=== PATIENT | male | born 1970 | race Hispanic/Latino ===

== ENCOUNTER 2022-09-25 20:05 | Emergency (ER) | payer BC ==
--- NOTE | 2022-09-25 21:04 | RAD REPORT ---
EXAM DESCRIPTION: RAD - Chest Single View - 09/25/2022 8:54 pm CLINICAL HISTORY: CHEST PAIN Chest pain. COMPARISON: No comparisons FINDINGS: Portable technique limits examination quality. The lungs are grossly clear. The heart is upper limit of normal in size. No displaced fractures. IMPRESSION: No acute intrathoracic process suspected.
--- NOTE | 2022-09-25 21:06 | RAD REPORT ---
EXAM DESCRIPTION: CT - Head Brain Wo Cont - 09/25/2022 8:55 pm CLINICAL HISTORY: acute headache Headache, drowsiness, chest pain COMPARISON: Chest Single View dated 06/05/2022; Chest Single View dated 06/03/2022; Chest Single View dated 06/01/2022; Chest Single View dated 05/31/2022No comparisons TECHNIQUE: All CT scans are performed using dose optimization technique as appropriate and may inclu de automated exposure control or mA/KV adjustment according to patient size. FINDINGS: No intracranial hemorrhage, hydrocephalus or extra-axial fluid collection.No areas of brai n edema or evidence of midline shift. The paranasal sinuses and mastoids are clear. The calvarium is intact. IMPRESSION: No acute intracranial abnormality.
[2022-09-25] MEDS ORDERED: NA CHLORIDE 0.9% 1,000 ML ONE (21:51)
[2022-09-25] MEDS ORDERED: KETOROLAC 30 MG/ML INJ ONE (21:51)
[2022-09-25] MEDS ORDERED: DIPHENHYDRAMINE 50 MG/ML VIAL ONE (21:51)
[2022-09-25] MEDS ORDERED: METOCLOPRAMIDE 10 MG/2mL INJ ONE (21:51)
[2022-09-25 22:00] LABS: Hematocrit 41.7 % (39.6-49.0); Lymphocytes % 17.2 % (15.3-44.8); MCV 87.6 fL (80-100); MPV 8.3 fL (7.6-11.3); RBC Red Blood Cell Count 4.77 M/uL (4.33-5.43)
[2022-09-25 22:05] LABS: Protime INR 0.89
[2022-09-25 22:22] LABS: Albumin 3.9 g/dL (3.4-5.0); Bilirubin Direct 0.2 mg/dL (0-0.2); Bilirubin Indirect, Calculated 0.5 mg/dL (0.2-0.8); Bilirubin Total 0.7 mg/dL (0.2-1.0); Magnesium 1.9 mg/dL (1.6-2.4); Potassium 3.6 mEq/L (3.5-5.1); Protein, Total 7.6 g/dL (6.4-8.2); Troponin High Sensitivity 3.4 pg/mL (<58.9)
--- NOTE | 2022-09-25 23:58 | EDPHYS ---
Physician Documentation [facility] Name: Vicky Howard Age: 52 yrs Sex: Male : 1970 Arrival Date: 09/25/2022 Time: 20:05 Bed 8 Private MD: ED Physician Nash Rivera HPI: 09/25 23:36 This 52 yrs old Male presents to ER via Ambulatory with complaints of sp4 Headache, Chest Pain. 23:51 52-year-old female with history of prior brain bleed secondary to an aneurysm presents sp4 with acute headache associated with elevated blood pressure 156/93, associated with left-sided dull chest ache discomfort. Patient states she had a bleeding brain aneurysm in 2014 that was managed conservatively. Patient does not recall any interventional procedures for the bleeding brain aneurysm.. 23:51 Headache is moderate, global, started about 6:30 PM after drinking couple coffee.. sp4 Historical: - Allergies: 20:26 No Known Allergies; vc1 - Home Meds: 20:26 None [Active]; vc1 - PMHx: 20:26 Cerebrovascular accident; bleed; Blood clot in brain; Diabetes mellitus; vc1 - PSHx: 20:26 Tummy tuck; Cholecystectomy; section; vc1 - Immunization history:: Client reports having NOT received the Covid vaccine. - Social history:: Smoking status: Patient denies any tobacco usage or history of. - Family history:: not pertinent. ROS: 23:51 Constitutional: Negative for fever, chills, and weight loss, Eyes: Negative for injury, sp4 pain, redness, and discharge, ENT: Negative for injury, pain, and discharge, Neck: Negative for injury, pain, and swelling, Cardiovascular: Negative for palpitations, and edema, positive for acute chest discomfort left-sided. Respiratory: Negative for shortness of breath, cough, wheezing, and pleuritic chest pain, Abdomen/GI: Negative for abdominal pain, nausea, vomiting, diarrhea, and constipation, Back: Negative for injury and pain, : Negative for injury, bleeding, discharge, and swelling, MS/Extremity: Negative for injury and deformity, Skin: Negative for injury, rash, and discoloration, Neuro: Negative for weakness, numbness, tingling, and seizure, positive for global headache Psych: Negative for depression, anxiety, Allergy/Immunology: Negative for hives, rash, and allergies Endocrine: Negative for neck swelling, polydipsia, polyuria, polyphagia, and weight changes Hematologic/Lymphatic: Negative for swollen nodes, abnormal bleeding, and unusual bruising Exam: 23:51 Constitutional: This is a well developed, well nourished patient who is awake, alert, sp4 and in no acute distress. Head/Face: Normocephalic, atraumatic. Eyes: Pupils equal round and reactive to light, extra-ocular motions intact. Lids and lashes normal. Conjunctiva and sclera are not injected. Cornea within normal limits. Periorbital areas with no swelling, redness, or edema. ENT: Nares patent. No nasal discharge, no septal abnormalities noted. Tympanic membranes are normal and external auditory canals are clear. Oropharynx with no redness, swelling, or masses, exudates, or evidence of obstruction, uvula midline. Mucous membranes moist. Neck: Trachea midline, no thyromegaly or masses palpated, and no cervical lymphadenopathy. Supple, full range of motion without nuchal rigidity, or vertebral point tenderness. No Meningismus. Chest/axilla: Normal chest wall appearance and motion. Nontender with no deformity. No lesions are appreciated. Cardiovascular: Regular rate and rhythm with a normal S1 and S2. No gallops, murmurs, or rubs. Normal PMI, no JVD. No pulse deficits. Respiratory: Lungs have equal breath sounds bilaterally, clear to auscultation and percussion. No rales, rhonchi or wheezes noted. No increased work of breathing, no retractions or nasal flaring. Abdomen/GI: Soft, non-tender, with normal bowel sounds. No distension or tympany. No guarding or rebound. No evidence of tenderness throughout. Back: No spinal tenderness. No costovertebral tenderness. Skin: Warm, dry with normal turgor. Normal color with no rashes, no lesions, and no evidence of cellulitis. MS/ Extremity: Pulses equal, no cyanosis. Neurovascular intact. Full, normal range of motion. Neuro: Awake and alert, GCS 15, oriented to person, place, time, and situation. Cranial nerves II-XII grossly intact. Motor strength 5/5 in all extremities. Sensory grossly intact. Psych: Awake, alert, with orientation to person, place and time. Behavior, mood, and affect are within normal limits 23:51 Constitutional: This is a well developed, well nourished patient who is awake, alert, sp4 and in no acute distress. Patient is a female 23:51 ECG was reviewed by the Attending Physician. Normal sinus rhythm at the rate of 77 . sp4 There is no ST elevation or depression. There is no ectopy , EKG time 2047 Vital Signs: 20:24 BP 172 / 99; Pulse 75; Resp 15; Temp 98.8; Pulse Ox 100% ; Weight 81.65 kg; Height 5 vc1 ft. 3 in. ; Pain 6/10; 22:00 BP 124 / 69; Pulse 61; Resp 18; Pulse Ox 99% ; j7 23:00 BP 119 / 64; Pulse 63; Resp 16; Pulse Ox 100% ; 7 09/26 00:00 BP 106 / 57; Pulse 70; Resp 17; Pulse Ox 99% ; Pain 0/10; j7 09/25 20:24 Body Mass Index 31.89 (81.65 kg, 160.02 cm) 1 09/25 20:24 Pain Scale: Adult 1 09/26 00:00 Pain Scale: Adult j Hugo Coma Score: 09/25 23:51 Eye Response: spontaneous(4). Motor Response: obeys commands(6). Verbal Response: sp4 oriented(5). Total: 15. MDM: 20:21 Patient medically screened. sp4 23:51 Data reviewed: vital signs, nurses notes, lab test result(s), EKG, radiologic studies, sp4 CT scan, plain films. 23:51 Differential diagnosis: hypertensive headache, hypoglycemia, migraine, tension sp4 headache, vasomotor headache. Consideration of Admission/Observation Escalation of care including admission/observation considered. ED course: CT head negative, chest x-ray is normal, EKG is normal, lab work is unremarkable. Patient is stable for discharge home at this time. Will advise follow-up with primary MD for thyroid panel check.. 09/25 20:21 Order name: Basic Metabolic Panel; Complete Time: 23:34 sp4 09/25 20:21 Order name: CBC with Diff sp4 09/25 20:21 Order name: LFT's; Complete Time: 23:34 sp4 09/25 20:21 Order name: Magnesium; Complete Time: 23:34 sp4 09/25 20:21 Order name: NT PRO-BNP; Complete Time: 23:34 sp4 09/25 20:21 Order name: PT-INR; Complete Time: 23:34 sp4 09/25 20:21 Order name: Troponin HS; Complete Time: 23:34 sp4 09/25 20:21 Order name: XRAY Chest (1 view); Complete Time: 23:34 sp4 09/25 20:27 Order name: CT Head Brain wo Cont; Complete Time: 23:34 sp4 09/25 20:21 Order name: EKG; Complete Time: 20:22 sp4 09/25 20:21 Order name: Cardiac monitoring; Complete Time: 21:48 sp4 09/25 20:21 Order name: EKG - Nurse/Tech; Complete Time: 21:48 sp4 09/25 20:21 Order name: IV Saline Lock; Complete Time: 21:48 sp4 09/25 20:21 Order name: Labs collected and sent; Complete Time: 21:48 sp4 09/25 20:21 Order name: O2 Per Protocol; Complete Time: 21:48 sp4 09/25 20:21 Order name: O2 Sat Monitoring; Complete Time: 21:48 sp4 EC:51 Rate is 77 beats/min. Rhythm is regular, Normal Sinus Rhythm with No ectopy. QRS Palmer sp4 is Normal. AL interval is normal. QRS interval is normal. QT interval is normal. T waves are Normal. No ST changes noted. Clinical impression: No evidence of ischemia. Interpreted by me. Administered Medications: 21:48 Drug: Ketorolac IVP 30 mg Route: IVP; Site: left antecubital; rv 21:48 Drug: metoCLOPramide IVP 10 mg Route: IVP; Site: left antecubital; rv 21:48 Drug: diphenhydrAMINE IVP 25 mg Route: IVP; Site: left antecubital; rv 21:48 Drug: NS 0.9% IV 1000 ml Route: IV; Rate: 125 ml/hr; Site: left antecubital; rv Disposition Summary: 09/25/22 23:58 Discharge Ordered Location: Home sp4 Problem: new sp4 Symptoms: have improved sp4 Condition: Stable sp4 Diagnosis - Tension-type headache sp4 - Noncardiac chest pain, acute global headache, sp4 Followup: sp4 - With: Private Physician - When: 7 - 10 days - Reason: Recheck today's complaints Discharge Instructions: - Discharge Summary Sheet sp4 - General Headache Without Cause, Swsy-et-Vumc sp4 Prescriptions: - Fioricet 50-300-40 mg Oral capsule - take 1 capsule by ORAL route every 8 hours PRN Headache; 30 capsule; Refills: sp4 0, Product Selection Permitted Signatures: Dispatcher [employer] Farhat Sky, RN RN rv Archana Coyne RN RN vc1 Nash Rivera MD MD sp4
--- NOTE | 2022-09-25 23:58 | ER ---
Nurse's Notes [facility] Name: Vicky Howard Age: 52 yrs Sex: Male : 1970 Arrival Date: 09/25/2022 Time: 20:05 Bed 8 Private MD: Diagnosis: Tension-type headache;Noncardiac chest pain, acute global headache, Presentation: 09/25 20:24 Chief complaint: Patient states: "I drank some coffee earlier and got a headache then I vc1 got chest pain.". Coronavirus screen:. Ebola Screen: Patient negative for fever greater than or equal to 101.5 degrees Fahrenheit, and additional compatible Ebola Virus Disease symptoms Patient denies exposure to infectious person. Patient denies travel to an Ebola-affected area in the 21 days before illness onset. No symptoms or risks identified at this time. Initial Sepsis Screen: Does the patient meet any 2 criteria? No. Patient's initial sepsis screen is negative. Does the patient have a suspected source of infection? No. Patient's initial sepsis screen is negative. Risk Assessment: Do you want to hurt yourself or someone else? Patient reports no desire to harm self or others. Onset of symptoms was September 25, 2022 at 18:30. 20:24 Method Of Arrival: Ambulatory vc1 20:24 Acuity: CAMRYN 3 vc1 20:29 Coronavirus screen: Vaccine status: Patient reports being unvaccinated. Client denies vc1 travel out of the [place] in the last 14 days. At this time, the client does not indicate any symptoms associated with coronavirus-19. Triage Assessment: 20:29 Headache History: The patient has had previous headaches and this one is similar to vc1 previous episodes. General: Appears in no apparent distress. uncomfortable, Behavior is calm, cooperative, agitated. Pain: Complains of pain in chest Pain currently is 6 out of 10 on a pain scale. Pain began suddenly, 2 hours ago. Also complains of headache. EENT: No deficits noted. No signs and/or symptoms were reported regarding the EENT system. Neuro: Level of Consciousness is awake, alert, obeys commands, Oriented to person, place, time, situation, Appropriate for age. Neuro: Reports headache. Cardiovascular: Chest pain is described as mild, Pain is 6 out of 10 on a pain scale. is located in left. Respiratory: Airway is patent Respiratory effort is even, unlabored, Respiratory pattern is regular, symmetrical. GI: No deficits noted. No signs and/or symptoms were reported involving the gastrointestinal system. : No deficits noted. No signs and/or symptoms were reported regarding the genitourinary system. Derm: No deficits noted. No signs and/or symptoms reported regarding the dermatologic system. Musculoskeletal: No deficits noted. No signs and/or symptoms reported regarding the musculoskeletal system. Historical: - Allergies: 20:26 No Known Allergies; vc1 - Home Meds: 20:26 None [Active]; vc1 - PMHx: 20:26 Cerebrovascular accident; bleed; Blood clot in brain; Diabetes mellitus; vc1 - PSHx: 20:26 Tummy tuck; Cholecystectomy; section; vc1 - Immunization history:: Client reports having NOT received the Covid vaccine. - Social history:: Smoking status: Patient denies any tobacco usage or history of. - Family history:: not pertinent. Screenin:49 [facility] ED Fall Risk Assessment (Adult) History of falling in the last 3 months, rv including since admission No falls in past 3 months (0 pts) Confusion or Disorientation No (0 pts) Intoxicated or Sedated No (0 pts) Impaired Gait No (0 pts) Mobility Assist Device Used No (0 pt) Altered Elimination No (0 pt) Score/Fall Risk Level 0 - 2 = Low Risk Oriented to surroundings, Maintained a safe environment, Educated pt \\T\\ family on fall prevention, incl call for assistance when getting out of bed, Assessed \\T\\ reinforced patient's understanding of fall precautions, Provided non-skid footwear, Hourly rounding (assess needs \\T\\ fall precautionary measures) done, Used ambulatory aids as needed (educated on \\T\\ assisted with), Used gait belt as appropriate. Abuse screen: Denies threats or abuse. Denies injuries from another. Nutritional screening: No deficits noted. Tuberculosis screening: No symptoms or risk factors identified. Assessment: 21:31 Reassessment: not in lobby. as6 Vital Signs: 20:24 BP 172 / 99; Pulse 75; Resp 15; Temp 98.8; Pulse Ox 100% ; Weight 81.65 kg; Height 5 vc1 ft. 3 in. ; Pain 6/10; 22:00 BP 124 / 69; Pulse 61; Resp 18; Pulse Ox 99% ; jj7 23:00 BP 119 / 64; Pulse 63; Resp 16; Pulse Ox 100% ; jj7 09/26 00:00 BP 106 / 57; Pulse 70; Resp 17; Pulse Ox 99% ; Pain 0/10; jj7 06 20:24 Body Mass Index 31.89 (81.65 kg, 160.02 cm) vc1 09/25 20:24 Pain Scale: Adult vc1 09/26 00:00 Pain Scale: Adult j7 Hugo Coma Score: 09/25 23:51 Eye Response: spontaneous(4). Motor Response: obeys commands(6). Verbal Response: sp4 oriented(5). Total: 15. ED Course: 20:08 Patient arrived in ED. ag3 20:20 Nash Rivera MD is Attending Physician. sp4 20:26 Triage completed. vc1 20:29 Arm band placed on right wrist. vc1 20:56 XRAY Chest (1 view) In Process Unspecified. EDMS 20:56 CT Head Brain wo Cont In Process Unspecified. EDMS 21:33 Farhat Son, DEEP is Primary Nurse. rv 21:49 Patient has correct armband on for positive identification. Placed in gown. Bed in low rv position. Call light in reach. Side rails up X 1. Client placed on continuous cardiac and pulse oximetry monitoring. NIBP monitoring applied. library monitor on. 21:49 Inserted saline lock: 20 gauge in left antecubital area, using aseptic technique. Blood rv collected. 09/26 00:14 No provider procedures requiring assistance completed. IV discontinued, intact, jj7 bleeding controlled, No redness/swelling at site. Pressure dressing applied. Administered Medications: 09/25 21:48 Drug: Ketorolac IVP 30 mg Route: IVP; Site: left antecubital; rv 21:48 Drug: metoCLOPramide IVP 10 mg Route: IVP; Site: left antecubital; rv 21:48 Drug: diphenhydrAMINE IVP 25 mg Route: IVP; Site: left antecubital; rv 21:48 Drug: NS 0.9% IV 1000 ml Route: IV; Rate: 125 ml/hr; Site: left antecubital; rv Medication: 21:49 VIS not applicable for this client. rv Outcome: 23:58 Discharge ordered by . sp4 09/26 00:14 Discharged to home ambulatory. jj7 Condition: improved Discharge instructions given to patient, Instructed on discharge instructions, medication usage, Demonstrated understanding of instructions, medications, Prescriptions given X 1. 00:19 Patient left the ED. jj7 Signatures: Dispatcher [employer] EDMS Farhat Son RN RN rv Lyssa Gómez ag3 John Brizuela RN RN as6 Archana Coyne RN RN vc1 Isabel Schulz RN RN jj7 Nash Rivera MD MD sp4
[2022-09-26 01:27] VITALS: TEMP 98.8
[2022-09-26 01:33] VITALS: BP 106/57; O2SAT 99
--- NOTE | 2022-09-27 07:19 | EKG ---
Test Date: 2022-09-25 Test Time: 20:48:54 Concrete Pourer: WYATT MEASUREMENT RESULTS: Intervals: Rate: 77 UT: 154 QRSD: 76 QT: 362 QTc: 409 [place]: P: 53 UT: 154 QRS: -15 T: 33 INTERPRETIVE STATEMENTS: Normal sinus rhythm Normal ECG No previous ECG available for comparison Electronically Signed On 09-27-22 07:14:28 CDT by Clay Dixon
== END 2022-09-26 00:19 | disposition home or self-care (01) ==
LOC: ER 20:05
DX: G44.209 Tension-type headache, unspecified, not intractable (principal); R07.89 Other chest pain; E11.9 Type 2 diabetes mellitus without complications; Z86.73 Personal history of transient ischemic attack (TIA), and cerebral infarction without residual deficits
CPT/HCPCS: 93005; 85025; 80048; 36415; 83735; 85610; 80076; 84484; 83880; 70450; 71045; 96375; 96374; 99285; J2765; J1200; J7030

== ENCOUNTER 2023-02-28 17:28 | Emergency (ER) | payer BC ==
--- OUTSIDE RECORDS SUMMARY | 2023-02-28 17:54 | XMS REPORT | Continuity of Care Document ---
:1970 Author Organization [facility] t Address [address] [place] [address] Care Team Providers Name Role Phone Santino CAUSEY, Kayli Burnham Primary Care Physician [phone] BRAIN NAQVI Attending Clinician Unavailable YONAS WALLER Attending Clinician Unavailable [email or web address] Attending Clinician Unavailable SANFORD DAVILA Attending Clinician Unavailable LAB90 Attending Clinician Unavailable MINERVA MONTANEZ Attending Clinician Unavailable OZZY MADERA Attending Clinician Unavailable ALEXANDRA MCDANIEL Attending Clinician Unavailable DAVID TRIANA Attending Clinician Unavailable NATY BASURTO Attending Clinician Unavailable [email or web address]_S Admitting Clinician Unavailable Payers Payer Name Policy Type Policy Number Effective Date Expiration Date S ource BCBS 2 [id number] 2022 00:00:00 [place] [id number] 2022 00[place]00 [place] Problems This patient has no known problems. Allergies, Adverse Reactions, Alerts This patient has no known allergies or adverse reactions. Social History Social Habit Start Date Stop Date Quantity Comments Source Gender identity Lacey sommers - External History of tobacco Cigarette Smoker Lacey Reed - use External Sexual orientation Method [facility] Cigarettes smoked 2022-10-18 2022-10-18 Lacey Reed - current (pack per 00:00:00 00:00:00 Externa l day) - Reported Cigarette 2022-10-18 2022-10-18 Lacey Llamasbetzyjeanine - pack-years 00:00:00 00:00:00 External Tobacco use and 2022-10-18 2022-10-18 Smokeless Lacey Llamas ybold - exposure 00:00:00 00:00:00 tobacco non-user External Alcohol intake 2019-08-20 2019-08-20 Ex-drinker [facility] 00:[facility]:00 00:00:00 (finding) Hospital History of Social 2019-08-20 2019-08-[address] function 00:00:00 00:00:00 Hospital Sex Assigned At [birth year] [facility] 00:00:00 00:00:00 Hospital Smoking Status Start Date Stop Date Source Ex-smoker 2022-10-18 00:00:00 2022-10-18 00:00:00 Lacey S delfina - External Never smoked tobacco [facility] Medications Ordered Filled Start Stop Current Ordering Indication Dosage Frequency Signature Comments Components Source Medication Medication Date Date Medication? Clinician (SIG) Name Name ESTRADIOL Yes [id number] 1g Place 1 g Lacey VAGINAL 0.1 10-19 vaginally Sey bold MG/GM 00:00: twice a - vaginal 00 week Externa Cream l Metformin 2022- No 500mg Take 1 Mally ey HCl ER 500 10-18 tablet Seybol d MG oral 17:10: 00:00 (500 mg - TABLET SR 15 :00 total) by Exter na 24 HR mouth l daily Esomeprazol Yes [id number] 1{capsu Take 1 Lacey e Magnesium - le} capsule by ybold (NexIUM) 20 16:47: mouth - MG oral 15 daily Externa Pack l Metformin Yes [id number] 500mg Take 1 Lacey HCl ER 500 10-18 tablet Seybold MG oral 00:00: (500 mg - TABLET SR 00 total) by Exter na 24 HR mouth l daily ESTRADIOL 2022- No INSERT TWO K elsey VAGINAL 0.1 410-18 (2) GRAMS Se ybold MG/GM 00:00: 00:00 INTO - vaginal 00 :00 VAGINA AT Externa Cream BEDTIME l FOR 2 WEEKS, THEN 1 GRAM AT BEDTIME TWICE A WEEK. metFORMIN Yes TAKE 1 Method i (GLUCOPHAGE 08-[address] ) 500 mg 00:00: (500 MG) Hospi ta tablet 00 BY MOUTH 2 l TIMES PER DAY WITH MEALS sulfamethox 0 Yes TAKE ONE Me thodi azole-trime 07-28 (1) st thoprim 00:00: TABLET(S) Hospi ta (BACTRIM 00 BY MOUTH l DS) 800-160 TWICE A mg per DAY FOR tablet THREE DAYS. progesteron Yes Method i e 05-13 (PROMETRIUM 00:00: Hospit a ) 100 MG 00 l capsule Vital Signs Vital Name Observation Time Observation Value Comments Source Systolic blood 2022-10-18 21:41:00 116 mm[Hg] Lacey Seybold - pressure External Diastolic blood 2022-10-18 21:41:00 78 mm[Hg] Anjumse y Seybold - pressure External Heart rate 2022-10-18 21:41:00 75 /min Lacey mathis - External Body temperature 2022-10-18 21:41:00 36.44 Amy Mally ey Seybold - External Respiratory rate 2022-10-18 21:41:00 16 /min Mally ey Seybold - External Body weight 2022-10-18 21:41:00 84.278 kg Lacey mathis - External Oxygen saturation in 2022-10-18 21:41:00 99 /min Lacey Reed - Arterial blood by External Pulse oximetry Procedures This patient has no known procedures. Plan of Care Planned Activity Planned Date Details Comments Source Future Scheduled 2023-02-17 [facility] Test 07:52:18 malignant neoplasm of colon (procedure) [code = 030642891] Future Scheduled 2023-02-17 [facility] for [facility] Test 07:52:18 malignant neoplasm of colon (procedure) [code = 491073807] Future Scheduled 2023-02-17 [facility] for [facility] Test 07:52:18 malignant neoplasm of colon (procedure) [code = 722396194] Future Scheduled 2023-02-17 COVID-19 VACCINE [facility] Hospital Test 07:52:18 (#1) [code = COVID-19 VACCINE (#1)] Future Scheduled 2023-02-17 [facility] for [facility] Test 07:52:18 malignant neoplasm of cervix (procedure) [code = 055502406] Future [facility]uled [facility]23-02-17 [facility] malignant neoplasm of colon (procedure) [code = 217842026] Future Scheduled 2023-02-17 [facility] for [facility] Test 07:52:18 malignant neoplasm of colon (procedure) [code = 537713640] Future Scheduled 2023-02-17 SHINGLES VACCINES [facility] Test 07:52:18 (1 of 2) [code = SHINGLES VACCINES (1 of 2)] Future Scheduled 2023-02-17 [facility] 07:52:18 SCREENING [code = BREAST CANCER SCREENING] Future Scheduled 2023-02-[address] [facility] Test 07:52:18 (#1) [code = INFLUENZA VACCINE (#1)] Encounters Start End Encounter Admission Attending Care Care Encounter Source Date/Time Date/Time Type Type Clinicians Facility Department ID 2022-08-29 Outpatient [facility] [id number] [facility] 11:55:13 [id number] [facility] 2023-03-01 2023-03-01 Outpatient LACEY NAQVI [id number] [place] 13:30:00 13:30:00 BRAIN Seybol d 2023-02-09 2023-02-09 Outpatient LACEY NAQVI [id number] [place] 16:00:00 16:00:00 BRAIN Seybol d 2023-01-31 2023-01-31 Outpatient LACEY WALLER [id number] [place] 00:00:00 00:00:00 YONAS Seybol d 2023-01-26 2023-01-26 Outpatient LACEY WALLER [id number] [place] 00:00:00 00:00:00 YONAS Seybol d 2023-01-25 2023-01-25 Outpatient GC_GCBZW_Ka PRIV PRIV [id number] [facility] 00:00:00 00:00:00 diyala_S [id number] Medic al 2023-01-22 2023-01-22 Outpatient LACEY DAVILA [id number] [place] 08:45:00 08:45:00 SANFORD Seybol d 2023-01-19 2023-01-19 Outpatient PREZAS, LACEY GIPSON [id number] [place] 00:00:00 00:00:00 YONAS Seybol d 2023-01-08 2023-01-08 Outpatient PREZAS, LACEY GIPSON [id number] [place] 00:00:00 00:00:00 YONAS Seybol d 2023-01-08 2023-01-08 Outpatient PREZAS, LACEY GIPSON [id number] [place] 00:00:00 00:00:00 YONAS Seybol d 2022-12-21 2022-12-21 Outpatient LAB90 LACEY GIPSON [id number] [place] 13:25:00 13:25:00 Seybol d 2022-12-15 2022-12-15 Outpatient PREZAS, LACEY GIPSON [id number] [place] 00:00:00 00:00:00 YONAS Seybol d 2022-12-12 2022-12-12 Outpatient LAB90 LACEY GIPSON [id number] [place] 16:45:00 16:45:00 Seybol d 2022-12-12 2022-12-12 Outpatient [facility], [place] LACEY GIPSON [id number] [place] 16:15:00 16:15:00 Seybol d 2022-12-12 2022-12-12 Outpatient PREZAS, LACEY GIPSON [id number] [place] 00:00:00 00:00:00 YONAS Seybol d 2022-12-12 2022-12-12 Outpatient PREZAS, LACEY GIPSON [id number] [place] 00:00:00 00:00:00 YONAS Seybol d 2022-12-08 2022-12-08 Outpatient GC_GCBZW_Ka PRIV PRIV [id number] [facility] 00:00:00 00:00:00 diyala_S [id number] Medic al 2022-11-15 2022-11-15 Outpatient PREZALACEY Lozoya [id number] [place] 00:00:00 00:00:00 YONAS Seybol d 2022-10-26 2022-10-26 Outpatient PREZASLACEY [id number] [place] 00:00:00 00:00:00 YONAS Seybol d 2022-10-26 2022-10-26 Outpatient PREZAS, LACEY GIPSON [id number] [place] 00:00:00 00:00:00 YONAS Seybol d 2022-10-26 2022-10-26 Outpatient CASSY, LACEY GIPSON [id number] [place] 00:00:00 00:00:00 OZZY Seybol d 2022-10-26 2022-10-26 Outpatient PREZAS, LACEY GIPSON [id number] [place] 00:00:00 00:00:00 YONAS Seybol d 2022-10-20 2022-10-20 Outpatient PREZAS, LACEY GIPSON [id number] [place] 00:00:00 00:00:00 YONAS Seybol d 2022-10-19 2022-10-19 Outpatient PREZAS, LACEY GIPSON [id number] [place] 00:00:00 00:00:00 YONAS Seybol d 2022-10-19 2022-10-19 Outpatient CASSY, LACEY GIPSON [id number] [place] 00:00:00 00:00:00 OZZY Seybol d 2022-10-19 2022-10-19 Outpatient PREZAS, LACEY GIPSON [id number] [place] 00:00:00 00:00:00 YONAS Seybol d 2022-10-18 2022-10-18 Outpatient LAB90 LACEY GIPSON [id number] [place] 17:25:00 17:25:00 Seybol d 2022-10-18 2022-10-18 Outpatient CASSY, LACEY GIPSON [id number] [place] 16:30:00 16:30:00 OZZY Seybol d 2019-08-20 2019-08-20 Emergency [facility] [id number] [place] 00:00:00 00:00:00 ALEXANDRA [address] 2019-07-01 2019-07-01 Outpatient [facility] [id number] [address] [place] [address] 00:00:00 00:00:00 DAVID [address] 2019-07-01 2019-07-01 Outpatient [facility] [id number] [address] [place] [address] 00:00:00 00:00:00 DAVID 05[facility]oon [facility] 2019-06-23 2019-06-23 Outpatient [facility], [facility] [id number] [place] 00:00:00 00:00:00 NATY [address] 2019-06-23 2019-06-23 Outpatient [facility], [facility] [id number] [place] 00:00:00 00:00:00 NATY [address] Results This patient has no known results.
--- NOTE | 2023-02-28 18:49 | RAD REPORT ---
EXAM DESCRIPTION: US - Extremity Venous Uni Ltd - 02/28/2023 6:38 pm CLINICAL HISTORY: PAIN Leg swelling and edema. COMPARISON: No comparisons FINDINGS: Right lower extremity venous system was interrogated with Doppler technique. Normal flow, compressibility and augmentation was noted. There is no DVT present. IMPRESSION: No evidence of right lower extremity deep venous thrombosis.
--- NOTE | 2023-02-28 18:53 | EDPHYS ---
Physician Documentation [facility] Name: Vicky Howard Age: 52 yrs Sex: Male : 1970 Arrival Date: 02/28/2023 Time: 17:28 Bed IW1 Private MD: ED Physician Errol Mckinney HPI: 02/28 18:02 This 52 yrs old Male presents to ER via Wheelchair with complaints of Knee snw Pain. 18:02 Onset: The symptoms/episode began/occurred acutely. The patient has experienced a snw previous episode, approximately 2 years ago, but today's symptoms are not as bad as this previous episode, pt had DVT, was on anticoagulants x 6mo, stopped thinners one year ago. The patient has not recently seen a physician. Historical: - Allergies: 17:44 No Known Allergies; hb - Home Meds: 17:44 Ozempic subcutaneous [Active]; hb - PMHx: 17:44 Blood clot in brain; Cerebrovascular accident; bleed; diabetes mellitus; hb - PSHx: 17:44 section; Cholecystectomy; Tummy tuck; hb - Immunization history:: Adult Immunizations up to date. - Social history:: Smoking status: Patient denies any tobacco usage or history of. ROS: 18:01 Constitutional: Negative for fever, chills, and weight loss, Eyes: Negative for injury, snw pain, redness, and discharge, ENT: Negative for injury, pain, and discharge, Neck: Negative for injury, pain, and swelling, Cardiovascular: Negative for chest pain, palpitations, and edema, Respiratory: Negative for shortness of breath, cough, wheezing, and pleuritic chest pain, Abdomen/GI: Negative for abdominal pain, nausea, vomiting, diarrhea, and constipation, Back: Negative for injury and pain, : Negative for injury, bleeding, discharge, and swelling, Skin: Negative for injury, rash, and discoloration, Neuro: Negative for headache, weakness, numbness, tingling, and seizure, Psych: Negative for depression, anxiety, suicide ideation, homicidal ideation, and hallucinations, 18:01 MS/extremity: Positive for pain, of the right knee, Exam: 18:00 Constitutional: This is a well developed, well nourished patient who is awake, alert, snw and in no acute distress. Head/Face: Normocephalic, atraumatic. Eyes: Pupils equal round and reactive to light, extra-ocular motions intact. Lids and lashes normal. Conjunctiva and sclera are non-icteric and not injected. Cornea within normal limits. Periorbital areas with no swelling, redness, or edema. ENT: Nares patent. No nasal discharge, no septal abnormalities noted. Tympanic membranes are normal and external auditory canals are clear. Oropharynx with no redness, swelling, or masses, exudates, or evidence of obstruction, uvula midline. Mucous membranes moist. Neck: Trachea midline, no thyromegaly or masses palpated, and no cervical lymphadenopathy. Supple, full range of motion without nuchal rigidity, or vertebral point tenderness. No Meningismus. Chest/axilla: Normal chest wall appearance and motion. Nontender with no deformity. No lesions are appreciated. Cardiovascular: Regular rate and rhythm with a normal S1 and S2. No gallops, murmurs, or rubs. Normal PMI, no JVD. No pulse deficits. Respiratory: Lungs have equal breath sounds bilaterally, clear to auscultation and percussion. No rales, rhonchi or wheezes noted. No increased work of breathing, no retractions or nasal flaring. Abdomen/GI: Soft, non-tender, with normal bowel sounds. No distension or tympany. No guarding or rebound. No evidence of tenderness throughout. Back: No spinal tenderness. No costovertebral tenderness. Full range of motion. Skin: Warm, dry with normal turgor. Normal color with no rashes, no lesions, and no evidence of cellulitis. Neuro: Awake and alert, GCS 15, oriented to person, place, time, and situation. Cranial nerves II-XII grossly intact. Motor strength 5/5 in all extremities. Sensory grossly intact. Cerebellar exam normal. Normal gait. Psych: Awake, alert, with orientation to person, place and time. Behavior, mood, and affect are within normal limits. 18:00 Musculoskeletal/extremity: Extremities: grossly normal except: noted in the posterior aspect of right knee and right knee: pain, ROM: no acute changes, Circulation is intact in all extremities. Sensation intact. Vital Signs: 17:42 BP 143 / 98; Pulse 78; Resp 16; Temp 98.4; Pulse Ox 100% on R/A; Weight 80.29 kg; hb Height 5 ft. 3 in. ; Pain 1010; 17:42 Body Mass Index 31.35 (80.29 kg, 160.02 cm) hb 17:42 Pain Scale: Adult hb MDM: 17:46 Patient medically screened. snw 18:53 Data reviewed: vital signs, nurses notes, radiologic studies, ultrasound, negative for snw DVT. I considered the following discharge prescriptions or medication management in the emergency department Medications were administered in the Emergency Department. See MAR. Counseling: I had a detailed discussion with the patient and/or guardian regarding the historical points, exam findings, and any diagnostic results supporting the discharge/admit diagnosis, radiology results, the need for outpatient follow up, for definitive care, to return to the emergency department if symptoms worsen or persist or if there are any questions or concerns that arise at home. Special discussion: I have referred the patient to see his PCP for further evaluation of high blood pressure. Based on the history and exam findings, there is no indication for further emergent testing or inpatient evaluation. I discussed with the patient/guardian the need to see the primary care provider for further evaluation of the symptoms. 02/28 17:50 Order name: US Extremity Venous Unilateral Ltd; Complete Time: 18:52 snw Administered Medications: 19:14 Drug: HYDROcodone-acetaminophen PO 5 mg-325 mg 1 tabs PO once Route: PO; jw7 19:14 Follow up: Response: No adverse reaction jw7 19:14 Drug: Aspirin PO Chewable Tablet 324 mg PO once; 81 mg tablets x 4 Route: PO; jw7 19:14 Follow up: Response: No adverse reaction jw7 Disposition: 20:01 Co-signature as Attending Physician, Errol Mckinney MD I reviewed the patient's care rt provided by the Advanced Practice Provider and agree with the diagnosis and treatment plan. Disposition Summary: 02/28/23 18:52 Discharge Ordered Notes: 1 Baby aspirin daily Location: Home snw Condition: Stable snw Diagnosis - Pain in right leg snw Followup: snw - With: Emergency Department - When: As needed - Reason: Worsening of condition Followup: snw - With: Private Physician - When: 2 - 3 days - Reason: Recheck today's complaints, Continuance of care, Re-evaluation by your physician Discharge Instructions: - Discharge Summary Sheet snw - Musculoskeletal Pain snw - Pain Without a Known Cause snw - Aspirin and Your Heart snw - Heat Therapy snw Forms: - Work release form snw - Medication Reconciliation Form snw - Thank You Letter snw - Antibiotic Education snw - Prescription Opioid Use snw - Patient Portal Instructions snw - Leadership Thank You Letter snw Prescriptions: - acetaminophen-codeine 300-30 mg Oral tablet - take 1 tablet ORAL route 3 times per day as needed for pain; 12 tablet; snw Refills: 0, Product Selection Permitted Signatures: Dispatcher [employer] EDMS Janny Baumann, FEED CRUSHER-C FEED CRUSHER-Csnw Cielo Hudson, RN RN Carrie Gandhi RN RN jw7 Errol Mckinney MD MD rt
--- NOTE | 2023-02-28 18:53 | ER ---
Nurse's Notes [facility] Name: Vicky Howard Age: 52 yrs Sex: Male : 1970 Arrival Date: 02/28/2023 Time: 17:28 Bed IW1 Private MD: Diagnosis: Pain in right leg Presentation: 02/28 17:42 Chief complaint: Right knee pain 10/10 since 1200 today. Denies injury. Hx of DVT in hb same leg, not on blood thinners anymore. Coronavirus screen: At this time, the client does not indicate any symptoms associated with coronavirus-19. Ebola Screen: No symptoms or risks identified at this time. Initial Sepsis Screen: Does the patient meet any 2 criteria? No. Patient's initial sepsis screen is negative. Does the patient have a suspected source of infection? No. Patient's initial sepsis screen is negative. Risk Assessment: Do you want to hurt yourself or someone else? Patient reports no desire to harm self or others. Onset of symptoms was February 28, 2023. 17:42 Method Of Arrival: Wheelchair hb 17:42 Acuity: CAMRYN 3 hb Historical: - Allergies: 17:44 No Known Allergies; hb - Home Meds: 17:44 Ozempic subcutaneous [Active]; hb - PMHx: 17:44 Blood clot in brain; Cerebrovascular accident; bleed; diabetes mellitus; hb - PSHx: 17:44 section; Cholecystectomy; Tummy tuck; hb - Immunization history:: Adult Immunizations up to date. - Social history:: Smoking status: Patient denies any tobacco usage or history of. Vital Signs: 17:42 BP 143 / 98; Pulse 78; Resp 16; Temp 98.4; Pulse Ox 100% on R/A; Weight 80.29 kg; hb Height 5 ft. 3 in. ; Pain 10/10; 17:42 Body Mass Index 31.35 (80.29 kg, 160.02 cm) hb 17:42 Pain Scale: Adult hb ED Course: 17:29 Patient arrived in ED. rg4 17:29 Janny Baumann FNP-C is [facility]. snw 17:29 Errol Mckinney MD is Attending Physician. snw 17:44 Triage completed. hb 17:44 Arm band placed on. hb 18:40 US Extremity Venous Unilateral Ltd In Process Unspecified. EDMS 19:16 Carrie Gandhi, RN is Primary Nurse. jw7 19:20 PHCP role handed off by Janny Baumann FNP-C snw 19:20 Primary Nurse role handed off by Carrie Gandhi, RN adan Administered Medications: 19:14 Drug: HYDROcodone-acetaminophen PO 5 mg-325 mg 1 tabs PO once Route: PO; jw7 19:14 Follow up: Response: No adverse reaction jw7 19:14 Drug: Aspirin PO Chewable Tablet 324 mg PO once; 81 mg tablets x 4 Route: PO; jw7 19:14 Follow up: Response: No adverse reaction jw7 Outcome: 18:52 Discharge ordered by . adan 19:16 Patient left the ED. jw7 19:21 Patient left the ED. adan Signatures: Dispatcher [employer] EDWA Janny Baumann FNP-C FNP-Cielo Sifuentes RN RN Alisa Light rg4 Carrie Gandhi RN RN jw7 Corrections: (The following items were deleted from the chart) 17:48 17:42 Chief complaint: Right knee pain 01/30 since 1200 today. Denies injury. Hx of hb DVT, not on blood thinners. hb
[2023-02-28] MEDS ORDERED: ASPIRIN 81 MG CHEWABLE TABLET ONE (19:20)
[2023-02-28] MEDS ORDERED: HYDROCODONE/APAP 5/325 MG TAB ONE (19:21)
[2023-02-28 19:45] VITALS: BP 143/98; TEMP 98.4; O2SAT 100
== END 2023-02-28 19:21 | disposition home or self-care (01) ==
LOC: ER 17:28
DX: M79.661 Pain in right lower leg (principal); Z86.718 Personal history of other venous thrombosis and embolism
CPT/HCPCS: 93971; 99282